=== PATIENT | male | born 1970 | race Caucasian/White ===

== ENCOUNTER 2018-09-14 15:23 | Emergency (ER) | payer OTHER ==
[2018-09-14 15:34] VITALS: BMI 30.3
--- NOTE | 2018-09-14 15:47 | PDOC ---
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 He admits to feeling very hot and cold as well but denies having any fevers. He admits to having a non-specific headache and some neck pain. He denies having any chest pain, SOB, difficulty breathing, dysuria, frequency, urgency. 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 Denies using cigarettes, alcohol, or other illicit drugs. Past History - Past Medical History Allergies/Adverse Reactions: Allergies Allergy/AdvReac Type Severity Reaction Status Date / Time No Known Allergies Allergy Verified 09/14/18 15:31 Home Medications: Ambulatory Orders Amlodipine Bes/Olmesartan Med [Gwyn 10-20 mg Tablet] 1 each PO DAILY 03/13/12 Glipizide [Glucotrol -] 5 mg PO BIDI #0 tablet 02/25/13 Nifedipine ER [Procardia XL -] 90 mg PO DAILY #0 tab.er.24 02/25/13 metFORMIN HCL [Glucophage -] 1,000 mg PO BIDI #0 tablet 02/25/13 Insulin Detemir [Levemir Flexpen] 40 unit SQ AC 03/04/13 Aspirin [ASA -] 81 mg PO DAILY 09/14/18 hydrALAZINE HCL [Apresoline -] 100 mg PO BID 09/14/18 Anemia: No Asthma: No Cancer: No Cardiac Disorders: No CVA: No COPD: No CHF: No Dementia: No Diabetes: Yes GI Disorders: No Disorders: No HTN: Yes Hypercholesterolemia: No Liver Disease: No Seizures: No Thyroid Disease: No - Surgical History Abdominal Surgery: No Appendectomy: No Cardiac Surgery: No Cholecystectomy: No Lung Surgery: No Neurologic Surgery: No Orthopedic Surgery: Yes (03/16/12 R TMA, Left BKA) - Immunization History Td Vaccination: Yes TDAP Vaccination: Yes Immunization Up to Date: Yes - Suicide/Smoking/Psychosocial Hx Smoking Status: Yes Smoking History: Unknown if ever smoked Years of Tobacco Use: 0 Have you smoked in the past 12 months: Yes Number of Cigarettes Smoked Daily: 0 If you are a former smoker, when did you quit?: 3yrs ago Cigars Per Day: 0 'Breaking Loose' booklet given: 03/13/12 Hx Alcohol Use: No Drug/Substance Use Hx: No Substance Use Type: None Hx Substance Use Treatment: No Review of Systems - Review of Systems Able to Perform ROS?: Yes Comments:: CONSTITUTIONAL: Present: Chills Absent: fever, no fatigue EYES: Absent: visual changes ENT: Absent: ear pain, no sore throat CARDIOVASCULAR: Absent: chest pain, no palpitations RESPIRATORY: Absent: cough, no SOB GI: Present: Chest pain, nausea, vomiting, diarrhea Absent: no constipation GENITOURINARY: Absent: dysuria, no frequency, no hematuria MUSKULOSKELETAL: Absent: back pain, no arthralgia, no myalgia SKIN: Absent: rash NEURO: Present: headache *Physical Exam - Vital Signs Last Vital Signs Temp Pulse Resp BP Pulse Ox 98.1 F 91 H 20 138/76 100 09/14/18 15:31 09/14/18 15:31 09/14/18 15:31 09/14/18 15:31 09/14/18 15:31 - Physical Exam Comments: GENERAL: Well-appearing, well-nourished. Mild distress. HEENT: Normocephalic, atraumatic. PERRL, EOM intact. CARDIOVASCULAR: Normal S1, S2. Regular rate and rhythm. PULMONARY: Clear to auscultation bilaterally. ABDOMEN: There is diffuse tenderness to palpation in the abdomen in the michael-umbilical area, LLQ, epigastric area. No rebound or guarding. EXTREMITIES: Normal ROM in 3 extremities. Left lower leg amputated below the knee. SKIN: Warm, dry. No rash NEUROLOGICAL: No focal neurological deficits. 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 He admits to feeling very hot and cold as well but denies having any fevers. DDx IBNLT: appendicitis, cholecystitis, diverticulitis, pancreatitis, mesenteric ischemia, gastroenteritis, colitis. Plan: Labs, urine, IV hydration, CXR, EKG, abdominal CT, zofran, analgesia, re- assess. BUN elevated to 28, Cr wnl. - will give significant IV hydration. CXR showed no acute pathology. Abdominal CT showed no acute pathology. Patient feels better after tylenol and is no longer in pain. He is eating a sandwich and drinking cranberry juice. Will DC patient with cimetidine and GI follow up. *DC/Admit/Observation/Transfer Diagnosis at time of Disposition: Abdominal pain, Nausea & vomiting - Discharge Dispostion Disposition: HOME Condition at time of disposition: Improved Decision to Admit order: No - Referrals Referrals: Sundeep Pyle MD [Primary Care Provider] - Taz Courtney DO [Staff Physician] - - Patient Instructions Printed Discharge Instructions: DI for Vomiting -- Adult, DI for Nausea -- Adult, Acute Abdominal Pain Additional Instructions: You came into the ER with abdominal pain, nausea, and vomiting. You felt better after tylenol. The cat scan showed no inflammation in your abdomen. We are sending a medication to your pharmacy. Please make sure to go and pick it up. 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 We are attaching the number of one for you to call. Please come back to the ER if your pain worsens, you can't eat or drink, or have any other new or worsening concerns. Thank you for coming to the [facility] ER. We hope you feel better soon! Print Language: BENGALI - Post Discharge Activity
[2018-09-14] MEDS ORDERED: SODIUM CHLORIDE 3,130 ML IV ONE (16:02)
[2018-09-14] MEDS ORDERED: ONDANSETRON 4 MG/2 ML VIAL IVPUSH ONE (16:06)
[2018-09-14] MEDS ORDERED: ONDANSETRON 4 MG/2 ML VIAL ONE (16:11)
[2018-09-14] MEDS ORDERED: ACETAMINOPHEN 1000 MG/100 ML VIAL (NON FORMULARY) IVPB ONE (16:33)
[2018-09-14 16:37] LABS: BASO % 1.1 % (0-2.0); EOS % 0.4 % (0-4.5); HEMOGLOBIN 13.2 GM/dL (11.7-16.9); LYMPH % 16.8 % (8-40); MCH 29.4 pg (25.7-33.7); MCHC 34.8 g/dl (32.0-35.9); MEAN CELL VOLUME 84.4 fl (80-96); MEAN PLT VOLUME 7.6 fl (7.5-11.1); MONO % 6.9 % (3.8-10.2); NEUT % 74.8 % (42.8-82.8); PLATELET COUNT 374 K/MM3 (134-434); RDW 15.8 % (11.9-15.9); WHITE BLOOD COUNT 9.8 K/mm3 (4.0-10.0)
--- NOTE | 2018-09-14 16:37 | PDOC ---
Attending Attestation - Resident Resident Name: Farzad Alejandre - ED Attending Attestation I have performed the following: I have examined & evaluated the patient, The case was reviewed & discussed with the resident, I agree w/resident's findings & plan, Exceptions are as noted <Shantanu Solano - Last Filed: 09/14/18 16:37> - HPI HPI: 09/14/18 16:39 The patient is a 48 year old male, with a significant past medical history of hypertension, diabetes, PVD, who presents to the emergency department with one day of diffuse abdominal pain, nausea, emesis, and watery diarrhea with associated chills and sweats. He reports mild neck pain, but reports the abdominal pain is more severe. He describes the abdominal pain as diffuse, mild , and constant throughout the day. He reports his emesis as nonbilious/ nonbloody. He denies blood in his stools. The patient denies chest pain, shortness of breath, headache and dizziness. The patient denies fever, and constipation. The patient denies dysuria, frequency, urgency and hematuria. Allergies: NKDA Past surgical history: left BKA, right toe amputations Social history: daily marijuana - Medical Decision Making 09/14/18 16:39 Documentation prepared by Shweta Marcum, acting as medical records field technician for Shantanu Solano MD <Shweta Marcum - Last Filed: 09/14/18 16:39> - Physicial Exam PE: 09/14/18 17:26 CONSTITUTIONAL: Awake and alert. NECK: Supple; non-tender; no cervical lymphadenopathy CARD: Normal S1, S2; no murmurs, rubs, or gallops RESP: Normal chest excursion with respiration; breath sounds clear and equal bilaterally; no wheezes, rhonchi, or rales ABD: (+) Diffuse tenderness to palpation in periumbilical area, LLQ and epigastric area. No rebound or guarding. EXT: (+) LLE amputation below the knee. Normal ROM in all 3 extremities; non- tender to palpation; distal pulses intact. SKIN: Warm, dry, no rash NEURO: No focal neurological deficiencies. <Farzad Carlin - Last Filed: 09/14/18 18:00>
[2018-09-14] MEDS ORDERED: ACETAMINOPHEN INJECTION 100 ML IVPB ONE (16:50)
[2018-09-14 17:02] LABS: INR 0.95 (0.83-1.09); PROTHROMBIN TIME (PATIENT) 11.2 SEC (9.7-13.0)
[2018-09-14 17:17] LABS: ALBUMIN 3.6 g/dl (3.4-5.0); ALK PHOS 88 U/L (45-117); ANION GAP 8 MMOL/L (8-16); BILIRUBIN,TOTAL 1.2 mg/dL (0.2-1); BLOOD UREA NITROGEN 28 mg/dL (7-18); CALCIUM 8.9 mg/dL (8.5-10.1); CHLORIDE 108 mmol/L (98-107); CO2 23 mmol/L (21-32); CREATININE 1.2 mg/dL (0.55-1.3); GLUCOSE,RANDOM 186 mg/dL (74-106); LIPASE 90 U/L (73-393); POTASSIUM 4.1 mmol/L (3.5-5.1); SGOT/AST 11 U/L (15-37); SGPT/ALT 13 U/L (13-61); SODIUM 138 mmol/L (136-145); TOT PROT 7.2 g/dl (6.4-8.2)
[2018-09-14 18:55] LABS: URINE APPEARANCE CLEAR; URINE BILIRUBIN NEGATIVE (<2.0 mg/dL); URINE COLOR LTYELLOW; URINE GLUCOSE (UA) NEGATIVE (NEGATIVE); URINE KETONE TRACE (NEGATIVE); URINE LEUK ESTERASE NEGATIVE (NEGATIVE); URINE NITRITE NEGATIVE (NEGATIVE); URINE PROTEIN 1+ (NEGATIVE); URINE UROBILINOGEN NEGATIVE mg/dL (0.2-1.0)
[2018-09-14 19:14] LABS: EPI CELLS RARE /HPF (FEW); URINE MUCUS RARE
[2018-09-14 20:50] VITALS: BP 146/73; PULSE 90; TEMP 98.8
--- NOTE | 2018-09-15 15:49 | EKG ---
Test Reason : Blood Pressure : / mmHG Vent. Rate : 076 BPM Atrial Rate : 076 BPM P-R Int : 152 ms QRS Dur : 082 ms QT Int : 390 ms P-R-T Axes : 056 036 039 degrees QTc Int : 438 ms NORMAL SINUS RHYTHM CANNOT RULE OUT ANTERIOR INFARCT , AGE UNDETERMINED ABNORMAL ECG WHEN COMPARED WITH ECG OF 29-JAN-2013 11:07, NO SIGNIFICANT CHANGE WAS FOUND Confirmed by YOSEPH OBRIEN MD ([id number]) on 09/15/2018 3:49:30 PM Referred By: Confirmed By:YOSEPH OBRIEN MD
== END 2018-09-14 21:29 | disposition home or self-care (01) ==
LOC: JER 15:23
PROC: 3E0337Z Introduction of Electrolytic and Water Balance Substance into Peripheral Vein, Percutaneous Approach (ICD-10-PCS; principal; 2018-09-14)
PROC: 3E0337Z Introduction of Electrolytic and Water Balance Substance into Peripheral Vein, Percutaneous Approach (ICD-10-PCS; 2018-09-14)
PROC: 3E033GC Introduction of Other Therapeutic Substance into Peripheral Vein, Percutaneous Approach (ICD-10-PCS; 2018-09-14)
PROC: 3E033NZ Introduction of Analgesics, Hypnotics, Sedatives into Peripheral Vein, Percutaneous Approach (ICD-10-PCS; 2018-09-14)
DX: R10.84 Generalized abdominal pain (principal); R11.2 Nausea with vomiting, unspecified; I10 Essential (primary) hypertension; E11.9 Type 2 diabetes mellitus without complications; Z79.4 Long term (current) use of insulin; Z79.84 Long term (current) use of oral hypoglycemic drugs; I73.9 Peripheral vascular disease, unspecified; Z89.512 Acquired absence of left leg below knee; Z89.431 Acquired absence of right foot
CPT/HCPCS: 36415; 71045-TC-FY; 74177-TC; 80053; 81003; 81015; 83605; 83690; 84484; 85025; 85610; 85730; 86850; 86900; 86901; 87040; 87086; 93005; 93010; 99284-25; J0131; J7030

== ENCOUNTER 2020-11-10 14:51 | Emergency (ER) | payer OTHER ==
[2020-11-10 15:50] VITALS: TEMP 97.4; BMI 29.9
[2020-11-10] MEDS ORDERED: ONDANSETRON 4 MG/2 ML VIAL IVPB ONE (16:29)
[2020-11-10] MEDS ORDERED: SODIUM CHLORIDE 0.9% 500 ML INFUS.BAG IV ONE (16:29)
[2020-11-10] MEDS ORDERED: PANTOPRAZOLE SODIUM 40 MG VIAL IVPUSH ONE (16:29)
[2020-11-10] MEDS ORDERED: MAG HYDROX/AL HYDROX/SIMETH 30 ML UNIT-DOSE CUP PO ONE (16:29)
[2020-11-10] MEDS ORDERED: ONDANSETRON 4 MG/2 ML VIAL ONE (17:26)
[2020-11-10] MEDS ORDERED: PANTOPRAZOLE SODIUM 40 MG/100 ML BAG IVPB ONE (17:26)
[2020-11-10 18:10] LABS: BASO % 1.3 % (0-2.0); EOS % 0.5 % (0-4.5); HEMATOCRIT 43.4 % (35.4-49); HEMOGLOBIN 14.8 GM/dL (11.7-16.9); LYMPH % 22.3 % (8-40); MCHC 34.1 g/dl (32.0-35.9); MEAN CELL VOLUME 87.8 fl (80-96); MEAN PLT VOLUME 8.8 fl (7.5-11.1); MONO % 8.9 % (3.8-10.2); PLATELET COUNT 388 K/MM3 (134-434); RBC 4.94 M/mm3 (4.00-5.60); WHITE BLOOD COUNT 11.6 K/mm3 (4.0-10.0)
[2020-11-10 18:38] LABS: CHLORIDE 104 mmol/L (98-107); POTASSIUM 3.9 mmol/L (3.5-5.1); SODIUM 140 mmol/L (136-145)
[2020-11-10 18:41] LABS: ANION GAP 8 MMOL/L (8-16); BLOOD UREA NITROGEN 14.1 mg/dL (7-18); CALCIUM 8.8 mg/dL (8.5-10.1); CO2 28 mmol/L (21-32); GLUCOSE,RANDOM 211 mg/dL (74-106); LIPASE 68 U/L (73-393)
[2020-11-10 18:42] LABS: ALBUMIN 2.6 g/dl (3.4-5.0)
[2020-11-10 18:44] LABS: CREATININE 1.4 mg/dL (0.55-1.3); SGOT/AST 8 U/L (15-37); SGPT/ALT 13 U/L (13-61)
[2020-11-10 18:46] LABS: TOT PROT 6.2 g/dl (6.4-8.2)
[2020-11-10 18:47] LABS: ALK PHOS 98 U/L (45-117)
[2020-11-10] MEDS ORDERED: MAG HYDROX/AL HYDROX/SIMETH -MYLANTA- ORAL SUSPENSION PO ONE (18:55)
[2020-11-10] MEDS ORDERED: ACETAMINOPHEN 1000 MG/100 ML VIAL (NON FORMULARY) IVPB ONE (18:55)
[2020-11-10] MEDS ORDERED: MAG HYDROX/AL HYDROX/SIMETH 30 ML UNIT-DOSE CUP ONE (19:21)
[2020-11-10] MEDS ORDERED: hydrALAZINE HCL 50 MG TABLET (FP) PO ONE (20:04)
[2020-11-10] MEDS ORDERED: amLODIPine BESYLATE 10 MG TABLET (FP) PO ONE (20:04)
[2020-11-10] MEDS ORDERED: hydrALAZINE HCL 25 MG TABLET (FP) ONE (20:36)
[2020-11-10] MEDS ORDERED: amLODIPine BESYLATE 5 MG TABLET (FP) ONE (20:36)
[2020-11-10 21:24] VITALS: BP 198/95; PULSE 68
== END 2020-11-10 21:52 | disposition home or self-care (01) ==
LOC: JER 14:51
PROC: 3E033NZ Introduction of Analgesics, Hypnotics, Sedatives into Peripheral Vein, Percutaneous Approach (ICD-10-PCS; principal; 2020-11-10)
PROC: 3E033GC Introduction of Other Therapeutic Substance into Peripheral Vein, Percutaneous Approach (ICD-10-PCS; 2020-11-10)
DX: R10.13 Epigastric pain (principal)
CPT/HCPCS: 36415; 71045-TC-FY; 76705-TC; 80053; 82550; 82962; 83690; 84484; 85025; 93005; 93010; 99285-25; J0131

== ENCOUNTER 2020-11-10 22:12 | Emergency (ER) | payer OTHER ==
[2020-11-10 22:21] VITALS: TEMP 99; BMI 29.9
[2020-11-10] MEDS ORDERED: METOCLOPRAMIDE HCL 10 MG TABLET (FP) PO ONE ×2 (22:57→23:14)
[2020-11-11 00:26] VITALS: BP 158/72; PULSE 76
== END 2020-11-11 00:29 | disposition home or self-care (01) ==
LOC: JER 22:12
PROC: 3E033NZ Introduction of Analgesics, Hypnotics, Sedatives into Peripheral Vein, Percutaneous Approach (ICD-10-PCS; principal; 2020-11-10)
PROC: 3E033GC Introduction of Other Therapeutic Substance into Peripheral Vein, Percutaneous Approach (ICD-10-PCS; 2020-11-10)
DX: R42 Dizziness and giddiness (principal)
CPT/HCPCS: 36415; 82550; 84484; 93005; 93010; 99285-25

== ENCOUNTER 2022-10-28 12:03 | Observation (INO) | payer OTHER ==
[2022-10-28 14:02] LABS: EOS % 3.7 % (0-4.5); HEMATOCRIT 25.6 % (35.4-49); HEMOGLOBIN 8.4 GM/dL (11.7-16.9); LYMPH % 27.5 % (8-40); MCH 28.9 pg (25.7-33.7); MCHC 32.7 g/dl (32.0-35.9); MEAN CELL VOLUME 88.2 fl (80-96); MEAN PLT VOLUME 7.5 fl (7.5-11.1); MONO % 10.7 % (3.8-10.2); NEUT % 55.1 % (42.8-82.8); PLATELET COUNT 344 10^3/uL (134-434); RDW 17.4 % (11.9-15.9); WHITE BLOOD COUNT 6.6 K/mm3 (4.0-10.0)
[2022-10-28 14:10] LABS: INR 1.1 (0.83-1.09); PROTHROMBIN TIME (PATIENT) 12.8 SEC (9.7-13.0)
[2022-10-28 14:13] LABS: ACTIVATED PTT 36.1 SECONDS (25.2-36.5)
[2022-10-28 14:20] LABS: CHLORIDE 115 mmol/L (98-107); SODIUM 139 mmol/L (136-145)
[2022-10-28 14:22] LABS: ALBUMIN 3.6 g/dl (3.4-5.0); BLOOD UREA NITROGEN 48.1 mg/dL (7-18); CALCIUM 8.8 mg/dL (8.5-10.1); CO2 23 mmol/L (21-32); GLUCOSE,RANDOM 127 mg/dL (74-106)
[2022-10-28 14:25] LABS: CREATININE 2.4 mg/dL (0.55-1.3); SGOT/AST 7 U/L (15-37); SGPT/ALT 22 U/L (13-61)
[2022-10-28 14:27] LABS: BILIRUBIN,TOTAL 0.4 mg/dL (0.2-1); TOT PROT 7.2 g/dl (6.4-8.2)
[2022-10-28 14:28] LABS: ALK PHOS 66 U/L (45-117)
[2022-10-28 14:29] LABS: ANION GAP 1 MMOL/L (8-16)
[2022-10-28] MEDS ORDERED: INSULIN REGULAR HUMAN 100 UNITS/ML *VIAL IVPUSH ONE ×2 (17:08→17:09)
[2022-10-28] MEDS ORDERED: DEXTROSE 50%-WATER - 25 GM/50 ML VIAL IVPUSH ONE (17:10)
[2022-10-28] MEDS ORDERED: CALCIUM GLUCONATE 10% - 1,000 MG/10 ML VIAL IVPB ONE (17:11)
[2022-10-28] MEDS ORDERED: SODIUM CHLORIDE 0.9% 500 ML INFUS.BAG IV ONE (17:12)
[2022-10-28] MEDS ORDERED: DEXTROSE 50%-WATER 25 GM/50 ML DISP.SYRIN ONE (17:28)
[2022-10-28] MEDS ORDERED: CALCIUM GLUCONATE 10% - 1,000 MG/10 ML VIAL ONE (17:28)
[2022-10-28] MEDS ORDERED: INSULIN REGULAR HUMAN 100 UNITS/ML *VIAL ONE (17:28)
[2022-10-28] MEDS ORDERED: SODIUM ZIRCONIUM CYCLOSILICATE (LOKELMA) 5 GM PACKET ONE (18:01)
[2022-10-28] MEDS: SODIUM ZIRCONIUM CYCLOSILICATE (LOKELMA) 5 GM PACKET PO SCH (18:04)
[2022-10-28] MEDS ORDERED: ACETAMINOPHEN 325 MG TABLET (FP) PO PRN (22:08)
[2022-10-28] MEDS ORDERED: DOCUSATE SODIUM 100 MG CAPSULE (FP) PO PRN (22:08)
[2022-10-28] MEDS ORDERED: SODIUM CHLORIDE 1,000 ML IV SCH (22:15)
[2022-10-28] MEDS ORDERED: MELATONIN 5 MG TABLETS PO PRN (22:16)
[2022-10-28 22:24] LABS: CALCIUM 8.7 mg/dL (8.5-10.1)
[2022-10-28 22:25] LABS: BLOOD UREA NITROGEN 45.7 mg/dL (7-18); MAGNESIUM 2.2 mg/dL (1.8-2.4)
[2022-10-28 22:28] LABS: CREATININE 2.4 mg/dL (0.55-1.3)
[2022-10-29 04:39] VITALS: BMI 24.6
[2022-10-29] MEDS ORDERED: HEPARIN NA (PORCINE) 5,000 UNITS/ML 1ML VIAL SQ SCH (06:00)
[2022-10-29] MEDS: ATORVASTATIN CA 40 MG TABLET (FP) PO SCH ×2 (06:13→22:49)
[2022-10-29] MEDS: LABETALOL HCL 200 MG TABLET (FP) PO SCH ×3 (06:14→22:49)
[2022-10-29] MEDS: hydrALAZINE HCL 50 MG TABLET (FP) PO SCH ×3 (06:14→22:48)
[2022-10-29] MEDS: INSULIN SLIDING SCALE (NOVOLOG) 1 VIAL SQ SCH ×4 (06:17→22:49)
[2022-10-29 08:48] LABS: BASO % 2.6 % (0-2.0); EOS % 2.5 % (0-4.5); HEMATOCRIT 22.8 % (35.4-49); HEMOGLOBIN 7.9 GM/dL (11.7-16.9); LYMPH % 29.4 % (8-40); MCHC 34.6 g/dl (32.0-35.9); MEAN CELL VOLUME 86.7 fl (80-96); MEAN PLT VOLUME 6.8 fl (7.5-11.1); MONO % 10.7 % (3.8-10.2); NEUT % 54.8 % (42.8-82.8); PLATELET COUNT 306 10^3/uL (134-434); RBC 2.62 M/mm3 (4.00-5.60); RDW 17.3 % (11.9-15.9); WHITE BLOOD COUNT 7.1 K/mm3 (4.0-10.0)
[2022-10-29 09:06] LABS: CALCIUM 8.5 mg/dL (8.5-10.1)
[2022-10-29] MEDS: SODIUM ZIRCONIUM CYCLOSILICATE (LOKELMA) 5 GM PACKET PO SCH (09:06)
[2022-10-29 09:07] LABS: BLOOD UREA NITROGEN 42.6 mg/dL (7-18)
[2022-10-29 09:11] VITALS: RESP 18
[2022-10-29] MEDS ORDERED: SODIUM CHLORIDE 1,000 ML IV SCH (09:23)
[2022-10-29] MEDS ORDERED: SODIUM CHLORIDE 0.45% 1,000 ML IV SCH (13:15)
[2022-10-29 19:30] LABS: EPI CELLS 2 /uL (0-25.1); HYALINE CASTS 0 /uL (0-3.1); PH,URINE 6.5 (5.0-8.0); URINE APPEARANCE CLEAR; URINE BACTERIA 5 /uL (0-1359); URINE BILIRUBIN NEGATIVE (NEGATIVE); URINE COLOR YELLOW; URINE GLUCOSE (UA) NEGATIVE (NEGATIVE); URINE KETONE NEGATIVE (NEGATIVE); URINE LEUK ESTERASE NEGATIVE (NEGATIVE); URINE NITRITE NEGATIVE (NEGATIVE); URINE PROTEIN 2+ (NEGATIVE); URINE RBC 4 /uL (0-23.9); URINE WBC 4 /uL (0-25.8)
[2022-10-30] MEDS: INSULIN SLIDING SCALE (NOVOLOG) 1 VIAL SQ SCH ×3 (06:15→16:18)
[2022-10-30 08:53] LABS: BASO % 2.3 % (0-2.0); EOS % 3.2 % (0-4.5); HEMATOCRIT 23.6 % (35.4-49); HEMOGLOBIN 7.9 GM/dL (11.7-16.9); LYMPH % 28.3 % (8-40); MCH 29.3 pg (25.7-33.7); MCHC 33.6 g/dl (32.0-35.9); MEAN CELL VOLUME 87.2 fl (80-96); MEAN PLT VOLUME 7.1 fl (7.5-11.1); MONO % 11.2 % (3.8-10.2); PLATELET COUNT 322 10^3/uL (134-434); RDW 17.3 % (11.9-15.9); WHITE BLOOD COUNT 6.6 K/mm3 (4.0-10.0)
[2022-10-30] MEDS: LABETALOL HCL 200 MG TABLET (FP) PO SCH (09:25)
[2022-10-30] MEDS: SODIUM ZIRCONIUM CYCLOSILICATE (LOKELMA) 5 GM PACKET PO SCH (09:26)
[2022-10-30] MEDS: hydrALAZINE HCL 50 MG TABLET (FP) PO SCH (09:26)
[2022-10-30 09:31] LABS: ALBUMIN 3.4 g/dl (3.4-5.0); BILIRUBIN,TOTAL 0.7 mg/dL (0.2-1); BLOOD UREA NITROGEN 37.2 mg/dL (7-18); CALCIUM 8.8 mg/dL (8.5-10.1); CREATININE 2.1 mg/dL (0.55-1.3); TOT PROT 6.6 g/dl (6.4-8.2)
[2022-10-30 16:59] VITALS: BP 154/73; PULSE 62; TEMP 98.9
== END 2022-10-30 18:31 | disposition home or self-care (01) ==
LOC: JER 12:03 → JERBED 19:10 → INTOOBSV 19:10 → J4W 10-29 01:39 → J7W 10-29 04:49
PROVIDERS: ADMIT Internal Medicine
PROC: 3E033GC Introduction of Other Therapeutic Substance into Peripheral Vein, Percutaneous Approach (ICD-10-PCS; principal; 2022-10-28)
PROC: 3E023GC Introduction of Other Therapeutic Substance into Muscle, Percutaneous Approach (ICD-10-PCS; 2022-10-28)
PROC: 3E013VG Introduction of Insulin into Subcutaneous Tissue, Percutaneous Approach (ICD-10-PCS; 2022-10-28)
DX: I12.9 Hypertensive chronic kidney disease with stage 1 through stage 4 chronic kidney disease, or unspecified chronic kidney disease (principal); I13.10 Hypertensive heart and chronic kidney disease without heart failure, with stage 1 through stage 4 chronic kidney disease, or unspecified chronic kidney disease; E11.22 Type 2 diabetes mellitus with diabetic chronic kidney disease; I73.9 Peripheral vascular disease, unspecified; R21 Rash and other nonspecific skin eruption; D64.89 Other specified anemias; M19.90 Unspecified osteoarthritis, unspecified site; E78.5 Hyperlipidemia, unspecified; N28.9 Disorder of kidney and ureter, unspecified; Z87.891 Personal history of nicotine dependence
CPT/HCPCS: 36415; 76775-TC; 80048; 80053; 81003; 82436; 82570; 82607; 82728; 82746; 82962; 83540; 83550; 83615; 83735; 84100; 84133; 84300; 85025; 85610; 85730; 86850; 86900; 86901; 93005; 93010; 96361; 96372; 96374; 96375; 99285-25; C9803-CS; G0378; J1644; U0003; U0005